=== PATIENT | male | born 1975 | race Hispanic/Latino ===

== ENCOUNTER 2016-07-25 12:41 | Day surgery (SDC) | payer OTHER ==
[2016-07-25] VITALS (8 sets, daily range): BP systolic 117–136; BP diastolic 63–80; PULSE 58–80; RESP 13–18; O2SAT 95–98
[~2016-07-25] VITALS: Ht 165.1 cm; Wt 83.5 kg
[~2016-07-25 12:41] MED LIST: CeFAZolin Inj 2 GM in IV Premix 1 EACH IV SCH; FLUT9.9S NS; Lactated Ringer's 1,000 ML IV SCH; NPR500T PO
[2016-07-25] MEDS ORDERED: fentaNYL-PF 50 mCg/mL 2 mL Inj ONE (12:42)
[2016-07-25] MEDS ORDERED: Propofol 10,000 mCg/mL 20 mL Inj ONE (12:42)
[2016-07-25] MEDS ORDERED: Dexamethasone 4 mg/mL Inj ONE (12:42)
[2016-07-25] MEDS ORDERED: Succinylcholine Chloride 20 mg/mL 5 mL Inj ONE (12:42)
[2016-07-25] MEDS ORDERED: Ondansetron 2 mg/mL 2 mL Inj ONE (12:42)
[2016-07-25] MEDS ORDERED: Lactated Ringer's 1,000 ML IV ONE (13:41)
[2016-07-25] MEDS ORDERED: Ketorolac 15 mg/mL Inj IVPUSH ONE (15:30)
[2016-07-25] MEDS ORDERED: HYDROcodone-APAP 5-325 mg Tablet PO PRN (15:30)
[2016-07-25] MEDS ORDERED: Lactated Ringer's 1,000 ML IV SCH (15:33)
[2016-07-25] MEDS ORDERED: Lactated Ringer's 500 ML IV PRN (15:33)
--- NOTE | 2016-07-25 15:33 | PCM.HPANE ---
Patient Data Date of Service: Jul 25, 2016 (0650) Surgeon Admitting Provider: Attending Provider:Jone Kirkpatrick MD Primary Care Physician:Franco Other Provider:Daniel Sanchez Anesthesia Reason for Visit Left Knee Meniscal Tear Ht/WT & BMI Height (Feet): 5 Height (Inches): 5 Weight (Kilograms): 83.5 Body Mass Index 30.00 Allergies Coded Allergies: No Known Allergies (Unverified , 07/19/16) Past Anesthesia History Anesthesia History: Denies:: Fam Anesthesia Reaction, Fam Malignant Hypertherm Diabetes History Hx Diabetes?: No MRSA MRSA: No Medications Reported Medications Naproxen 500 Mg Trp484 Mg PO BID PRN For Pain Ref 0 07/19/16 Fluticasone Propionate (Flonase Allergy Relief)50 Mcg/Actuation [place].susp9.9 Ml NS DAILY 07/19/16 History History of ENT Problems?: Yes HEENT History: Positive for:: Sinus Problem (allergic rhinitis/envoronmental allergies) Hx of Heart Problems?: No Cardiovascular History: Denies:: Heart Murmur Hypertension Hx of Respiratory Problem?: No Respiratory History: Denies:: Use of C-PAP Machine Hx Neurologic Problems?: No Hx of GI Problems?: Yes Gastrointestinal History: Positive for:: Heartburn Hx of Problems?: No Male Hx: Denies:: Prostate Problems Scrotal Mass Testicular Surgery Skin History: Denies:: History Skin Disorders? Pressure Ulcers Hx Musculoskeletal Problems?: Yes Musculoskeletal History: Positive for:: Musculoskeletal Trauma (LT KNEE MENISCAL TEAR=CURRENT PROBLEM) Hx of Psycho/Social Problems?: Yes Psycho Social History: Positive for:: Anxiety Hx Depression Hx Surgeries?: No Hx Any Other Health Problems?: No Other History: Denies:: Cancer Endocrine Disease Hospitalization Thyroid Disease History Blood Transfusions: Denies:: Blood Transfusions Hx Diabetes: No Hx Alcohol Use: Yes (OCCAS)Have You Smoked inLast 12 mo: No Stop/Bang S-Snoring: Do You Snore Loudly: No T-Tired: feel tired, fatigued: No O-Obsered: Observed not breath: No P-Blood Pressure: treated: No B- Body Mass Index > 35 kg/m2: No A- Age over 50: No N- Neck Large Circumference: No G- Gender Male: Yes JOAN Total Score: 1 JOAN Risk Assessment: Low Risk, <3 Yes Risk Assessment Category Category 1A: Patient has history of documented sleep apnea, and HAS NOT received any narcotic, sedative or anesthesia administration during this stay. Category 1B: Patient has history of documented sleep apnea, and HAS received any narcotic , sedative or anesthesia administration during this stay Category 2: Patient has SUSPECTED Obstructive Sleep Apnea, and HAS received any narcotic , sedative or anesthesia administration during this stay. Category 3: Patient has SUSPECTED Obstructive Sleep Apnea and HAS NOT received narcotic, sedative or anesthesia administration during this stay. Category 4: Outpatient in Procedural Areas with known sleep apnea or who screen positive for High Risk via the STOP/BANG questionnaire. Exam Exam Vital Signs Vital Signs Date Time Temp Pulse Resp B/P Pulse Ox O2 Delivery O2 Flow Rate FiO2 07/25/16 13:11 36.8 66 18 123/75 97 Room Air General Appearance: Alert, Oriented X3, Cooperative HEENT/AIRWAY: MP 1 Lungs: Clear to Auscultation Heart: Exam Unremarkable Meds/Labs/Diagnostics Admission Meds Current Medications Lactated Ringer's (Lr) 1,000 ml @ ud STK-MED ONCE IV Last administered on 07/25t 13:41; Start 07/25/16 at 13:41; Stop 07/25/16 at 13:42; Status DC Plan Impression Patient chart reviewed, patient interviewed and anesthestic plan with risks, benefits, and alternatives discussed, and informed consent obtained. NPO Status: 0900 ASA Physical Status: ASA2 Mod Systemic Disease Anesthetic Plan: GA Bene/Risks/Altern/Consents: Yes HP Complete Prior to Induction: Yes Edgar Chang MD Jul 25, 2016 15:33
--- NOTE | 2016-07-25 15:33 | PCM.ORTHOP ---
Orthopedic Operative Report Date of Service: Jul 25, 2016 Pre Operative Diagnosis left knee medial meniscus tear, chondromalacia Post Operative Diagnosis same Procedure left knee arthroscopy, partial medial meniscectomy, chondroplasty, partial synovectomy Surgeon Surgeon: Jone Kirkpatrick MD Assistants: None Indication for Procedure left knee meniscus tear Findings per dictation Details of Procedure INDICATIONS:Gigi Littlejohn is a 41 year old male who has had a history of left knee pain. The patient has failed conservative management. X-rays show the tibiofemoral joints to be preserved with mild DJD. MRI was obtained which reveals medial meniscus tear. The patient has had persistent symptoms and is now brought to the operating room for arthroscopy. The risks, benefits, and alternatives of surgery were discussed with the patient. The risks included but were not limited to infection, bleeding, damage to vessels and nerves, loss of motion, continued pain, re-tear of the meniscus, deep venous thrombosis, and complications due to anesthesia including nerve injury, myocardial infarction, stroke, , etc. The patient stated understanding of the nature of the surgical procedure and gave written and verbal consent to proceed. PROCEDURE: The patient was brought to the operating room and placed supine on the operating room table. After the administration of general anesthesia the patient was placed in the supine position. Examination of the knee revealed no evident instability with a trace effusion. All prominences were padded with appropriately and neurovascular structures protected. The left knee was confirmed to be the appropriate site following surgical time out. The left lower extremity was examined under anesthesia. Range of motion was 0-135 degrees. There was no varus or valgus or anterior or posterior instability. The left lower extremity was then prepped and draped in the usual fashion. Sterile prep and drape was then undertaken of the knee. The knee joint was injected with 20 ccs of 1% Lidocaine, along with 3 ccs of 1 % lidocaine in the medial and lateral portal sites respectively. A standard anterolateral parapatellar stab wound was created. The knee joint was entered with a blunt- tipped obturator, followed by the 30-degree video arthroscope. An anteromedial portal was established under arthroscopic control. A routine arthroscopic survey was performed. The patellofemoral joint showed grade 1/2 chondromalacia which was debrided down to stable tissue with a shaver. The medial joint space was then entered. The articular surfaces showed grade 1/ 2 chondromalacia. A posterior root and body degenerative medial meniscal tear was noted with a small flap. The shaver and the cutting instruments were inserted, and a debridement of the meniscus back to healthy tissue was then undertaken. The ACL and PCL were noted to be intact. The lateral joint space was then entered. The articular surfaces were intact with grade 21/2 chondromalacia. There was a degenerative fraying to the lateral aspect of the lateral meniscus that was stable to probing. Synovitis was noted anteriorly in the medial and lateral compartments and was debrided with a shaver. The knee was irrigated with an additional 2 liters of lactated Ringer's solution. Excess fluid was drained. The portals were closed with 3-0 nylon as well as xeroform. The knee was injected with 20 mL of 0.5% ropivacaine. A dry sterile dressing was applied, followed by an INOCENCIA hose, soft roll, and ARNOLD bandage. The patient was awakened in the operating room and transported to the recovery room in satisfactory condition. The patient appeared to tolerate the procedure well. At the completion of surgery the patient had soft compartments , palpable pulses, and brisk capillary refill. There were no complications noted. Please keep dressing clean dry and intact. Do not remove dressing until follow- up in clinic. If the dressing become soaked, you may remove the outer gauze and placed Band-Aids on the wounds. You may weight-bear as tolerated and maintain motion of your knee by bending it daily. You will follow up in clinic in 10-14 days for suture removal, and placement of new Steri-Strips. You will follow-up with me in clinic, and we will start physical therapy if needed. You will follow-up with me at 6 weeks postop and 12 weeks postop and will be released after that if improved. Please keep the affected extremity elevated when possible. Please take aspirin as prescribed. You may use ice and/ or heat as needed for comfort. (preferably ice during the first 48-72 hours) Please feel free to call with any further questions, comments, and/or concerns. Grafts, Implants: None Complications There were no periprocedural complications identified. Condition Stable Anesthetic Administered: GA Catheters: None Output, Estimated Blood Loss: 5 Blood Admin during surgery: No Surgical Cast or Splint: Other Surgical Specimen Removed: No Specimen sent to Pathology: No copies to: Jone Kirkpatrick MD, Christopher L MD Jul 25, 2016 15:33 copies to: Jone Kirkpatrick MD, Christopher L MD Jul 25, 2016 15:33
[2016-07-25] MEDS ORDERED: Ondansetron 2 mg/mL 2 mL Inj IVPUSH PRN (15:35)
[2016-07-25] MEDS ORDERED: fentaNYL-PF 50 mCg/mL 2 mL Inj IVPUSH PRN (15:35)
[2016-07-25] MEDS ORDERED: MetoCLOpramide 5 mg/mL 2 mL Inj IVPUSH PRN (15:35)
[2016-07-25] MEDS ORDERED: HYDROmorphone 1 mg/mL Inj IVPUSH PRN (15:35)
[2016-07-25] MEDS ORDERED: Dexamethasone 4 mg/mL Inj IVPUSH PRN (15:35)
[2016-07-25] MEDS ORDERED: Phenylephrine 10,000 mCg/mL Inj IVPUSH PRN (15:35)
[2016-07-25] MEDS ORDERED: EPHEDrine Sulfate 50 mg/mL Inj IVPUSH PRN (15:35)
[2016-07-25] MEDS ORDERED: Lidocaine 1%-Epi 1:100,000 20 mL Inj INFILTRATE ONE (16:01)
[2016-07-25] MEDS ORDERED: Ropivacaine-PF 0.5% 30 mL Inj INFILTRATE ONE (16:13)
--- NOTE | 2016-07-25 16:28 | PCM.ANEP1 ---
Post Anesthesia Phase 1 PACU Phase 1 Assessment Date of Service: Jul 25, 2016 Vital Signs 36.6, 117/74, 60, 12, 98% Vital Signs Date Time Temp Pulse Resp B/P Pulse Ox O2 Delivery O2 Flow Rate FiO2 07/25/16 13:11 36.8 66 18 123/75 97 Room Air Anesthetic Administered: GA Level of Alertness: Sleepy, easy to arouse CALLE's with Equal Strength: Yes Pain: No Nausea or Vomiting: No Oxygen Delivery: Simple Mask Lungs: Clear to Auscultation Dermatome Level: Full Sensation Summary UNEVENTFUL GA Edgar Chang MD Jul 25, 2016 16:28
--- NOTE | 2016-07-25 16:29 | PCM.ANEP2 ---
Post Anesthesia Evaluation ASA/CMS Post Anesthesia VS in Patient's Normal Range?: Yes Resp Stable; Airway Patent?: Yes CV Function & Hydration Stable: Yes Mental Status Recovered?: Yes Pain control Satisfactory?: Yes N/V Control Satisfactory?: Yes Edgar Chang MD Jul 25, 2016 16:29
== END 2016-07-25 23:59 | disposition home or self-care (01) ==
LOC: SAS 12:41
PROVIDERS: ATTEND Orthopaedic Surgery
DX: M23.222 Derangement of posterior horn of medial meniscus due to old tear or injury, left knee (principal); M22.42 Chondromalacia patellae, left knee; M65.862 Other synovitis and tenosynovitis, left lower leg; F41.9 Anxiety disorder, unspecified; R12 Heartburn; Z79.899 Other long term (current) drug therapy